=== PATIENT | male | born 1960 | race Caucasian/White ===

== ENCOUNTER 2017-07-15 10:51 | Emergency (ER) | payer SELFPAY ==
[2017-07-15 11:23] VITALS: BP 147/97
[2017-07-15] MEDS ORDERED: Lidocaine 2% PF * 5 ML VIAL INJ ONE (11:31)
--- NOTE | 2017-07-15 11:31 | UC ---
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 His last tetanus was within the last 2 years. Bleeding stopped with direct pressure. - History Of Current Complaint Chief Complaint: UCLaceration Stated Complaint: FINGER LAC Time Seen by Provider: 07/15/17 11:25 Hx Obtained From: Patient Laceration Location: Finger Mechanism Of Injury: Sharp Trauma Onset/Duration: Sudden Onset Pain Intensity: 0 - Allergies/Home Medications Allergies/Adverse Reactions: Allergies Allergy/AdvReac Type Severity Reaction Status Date / Time No Known Allergies Allergy Verified 07/15/17 11:17 PMH/Surg Hx/FS Hx/Imm Hx Previously Healthy: Yes - Surgical History Surgical History: Yes Surgery Procedure, Year, and Place: AGE 14- TONSILLECTOMY- [facility] Umbilical hernia repair 2014 - Family History Known Family History: Positive: Hypertension - Social History Occupation: Employed Full-time Lives: With Family Alcohol Use: None Alcohol Amount: 1-2 BEERS WEEKLY Substance Use Type: None Smoking Status (MU): Never Smoked Tobacco Review of Systems Constitutional: Negative Skin: Other - Laceration right middle finger Respiratory: Negative Cardiovascular: Negative Neurovascular: Negative Musculoskeletal: Negative Neurological: Negative Psychological: Negative All Other Systems Reviewed And Are Negative: Yes Physical Exam Triage Information Reviewed: Yes Appearance: Well-Appearing, No Pain Distress, Well-Nourished Vital Signs: Initial Vital Signs Temp 98.8 F 07/15/17 11:18 Pulse 74 07/15/17 11:18 Resp 16 07/15/17 11:18 BP 147/97 07/15/17 11:18 Pulse Ox 96 07/15/17 11:18 Vital Signs Reviewed: Yes Neck: Positive: Supple, Nontender, No Lymphadenopathy Respiratory: Positive: Lungs clear, Normal breath sounds, No respiratory distress, No accessory muscle use Cardiovascular: Positive: RRR, No Murmur, Pulses Normal Musculoskeletal: Positive: Strength Intact - Right middle finger, ROM Intact - Right middle finger DIP and PIP Neurological: Positive: Alert, Other: - Sensations intact right hand and all fingers Psychological: Positive: Age Appropriate Behavior Skin: Positive: Other - 1.5cm flap-like laceration overlying PIP of right third digit. No tendon involvement. Laceration Repair - Laceration Repair 1 Description: Stellate Laceration Size After Repair: Length (cm) - 1.5 Modified For Repair: No Type Injection: Local Anesthesia Used: 2.0% Lido Cleansing Completed Via Routine Prep: Yes Closure Material: Sutures - 5-0 SIX Closure Method: Single Layer Suture Of: Skin Suture Type: Nylon - 5-0 SIX Laceration Course/Dx - Course/Dx Course Of Treatment: A time out was performed, witnessed, and signed. 2mL of 2% lidocaine without epi was administered and good anesthetization was achieved. In the usual sterile fashion, SIX 5-0 nylon sutures were placed. The wound was bandaged with telfa and tubegauze. The finger was placed in a splint to allow for appropriate healing given that the laceration is directly overlying the PIP. Pt tolerated procedure well. - Differential Dx - Laceration/Wound Provider Diagnoses: 1.5cm laceration to right middle finger Discharge - Sign-Out/Discharge Documenting (check all that apply): Discharge - Discharge Plan Condition: Stable Disposition: HOME Patient Education Materials: Care For Your Stitches (DC) Forms: *Work Release Referrals: Masood Tamez MD [Primary Care Provider] - Additional Instructions: If you develop a fever, shortness of breath, chest pain, new or worsening symptoms - please call your PCP or go to the ED. Your blood pressure was high at todays visit. Please see your primary provider within 4 weeks for recheck and re-evaluation. 1) Please keep the area bandaged, clean, dry, and intact for the next 3-4 days 2) If you develop a fever, colored or thick discharge, increased pain or swelling - please call your PCP or go to the ED. 3) Please return in 10-12 days to have your SIX sutures removed. - Billing Disposition and Condition Condition: STABLE Disposition: HOME
== END 2017-07-15 12:15 | disposition home or self-care (01) ==
LOC: UCEAST 10:51
DX: S61.212A Laceration without foreign body of right middle finger without damage to nail, initial encounter (principal); W26.8XXA Contact with other sharp object(s), not elsewhere classified, initial encounter; Y92.214 College as the place of occurrence of the external cause
CPT/HCPCS: 12001; 99201; G0463

== ENCOUNTER 2017-07-25 09:30 | Emergency (ER) | payer SELFPAY ==
--- NOTE | 2017-07-25 09:31 | UC ---
Laceration HPI - HPI Summary HPI Summary: Pt presents for suture removal. I saw the pt 10 days ago and placed 6 sutures in his right middle finger. He reports no issues. - History Of Current Complaint Stated Complaint: SUTURE REMOVAL Time Seen by Provider: 07/25/17 09:31 Hx Obtained From: Patient Laceration Location: Finger Mechanism Of Injury: Sharp Trauma - Allergies/Home Medications Allergies/Adverse Reactions: Allergies Allergy/AdvReac Type Severity Reaction Status Date / Time No Known Allergies Allergy Verified 07/25/17 09:36 PMH/Surg Hx/FS Hx/Imm Hx - Additional Past Medical History Additional PMH: None Previously Healthy: Yes - Surgical History Surgical History: Yes Surgery Procedure, Year, and Place: AGE 14- TONSILLECTOMY- [facility]. Umbilical hernia repair 2014 - Family History Known Family History: Positive: Hypertension - Social History Occupation: Employed Full-time Lives: With Family Alcohol Use: None Alcohol Amount: 1-2 BEERS WEEKLY Substance Use Type: None Smoking Status (MU): Never Smoked Tobacco Review of Systems Constitutional: Negative Skin: Other - [address] right middle finger Respiratory: Negative Cardiovascular: Negative Neurovascular: Negative Musculoskeletal: Negative Neurological: Negative Psychological: Negative All Other Systems Reviewed And Are Negative: Yes Physical Exam Triage Information Reviewed: Yes Appearance: Well-Appearing, No Pain Distress, Well-Nourished Vital Signs Reviewed: Yes Neck: Positive: Supple, Nontender, No Lymphadenopathy Respiratory: Positive: Lungs clear, Normal breath sounds, No respiratory distress Cardiovascular: Positive: RRR, No Murmur, Pulses Normal Musculoskeletal: Positive: Strength Intact - Right middle finger, ROM Intact - Right middle finger, No Edema - Right middle finger Neurological: Positive: Alert, Other: - Sensations intact right middle finger Psychological: Positive: Age Appropriate Behavior Skin: Positive: Other - Well healed laceration with good approximation right middle finger. SIX sutures in place. No edema, erythema, or drainage. Laceration Course/Dx - Course/Dx Course Of Treatment: SIX sutures removed. Pt tolerated well. - Differential Dx - Laceration/Wound Provider Diagnoses: Suture removal Discharge - Sign-Out/Discharge Documenting (check all that apply): Discharge - Discharge Plan Condition: Stable Disposition: HOME Patient Education Materials: Stitches Removal (ED) Referrals: Masood Tamez MD [Primary Care Provider] - Additional Instructions: If you develop a fever, shortness of breath, chest pain, new or worsening symptoms - please call your PCP or go to the ED. Your blood pressure was high at todays visit. Please see your primary provider within 4 weeks for recheck and re-evaluation. - Billing Disposition and Condition Condition: STABLE Disposition: HOME
[2017-07-25 09:39] VITALS: BP 142/100
== END 2017-07-25 09:49 | disposition home or self-care (01) ==
LOC: UCEAST 09:30
DX: S61.212D Laceration without foreign body of right middle finger without damage to nail, subsequent encounter (principal); W45.8XXD Other foreign body or object entering through skin, subsequent encounter
CPT/HCPCS: 99211; G0463

== ENCOUNTER 2017-09-05 12:12 | Emergency (ER) | payer OTHER ==
[2017-09-05] MEDS: NS 0.9% 1000 ML* 2,000 ML IV ONE (13:39)
[2017-09-05 13:53] LABS: ABS Basophils 0.1 10^3/ul (0-0.2); ABS Eosinophils 0 10^3/ul (0-0.6); ABS Lymphocytes 2.6 10^3/ul (1.0-4.8); ABS Monocytes 0.9 10^3/ul (0-0.8); ABS Neutrophils 6.5 10^3/ul (1.5-7.7); ABS Nucleated RBC 0 10^3/ul; Eosinophil % 0.5 % (0-6); Hematocrit 52 % (42-52); Hemoglobin 18.1 g/dl (14.0-18.0); Lymphocyte % 25.4 % (25-47); Mean Corpuscular HGB Conc 35 g/dl (31-36); Mean Corpuscular Hemoglobin 29 pg (27-31); Mean Corpuscular Volume 85 fL (80-94); Mean Platelet Volume 10.2 um3 (7.4-10.4); Nucleated Red Blood Cells % 0; Platelet Count 247 10^3/ul (150-450); Red Cell Distribution Width 13 % (10.5-15); White Blood Count 10.2 10^3/ul (3.5-10.8)
[2017-09-05 14:11] LABS: INR 1.01 (0.77-1.02)
--- NOTE | 2017-09-05 14:12 | RAD ---
INDICATION: Tachycardia COMPARISON: None TECHNIQUE: An AP portable view obtained at 1331 hours is submitted. FINDINGS: Bones/Soft Tissues: There are no acute bony findings. Cardiomediastinal: The cardiomediastinal silhouette is normal. Lungs: There are no infiltrates. Pleura: There are no pleural effusions. Other: None IMPRESSION: NORMAL CHEST.
[2017-09-05 14:13] LABS: EGFR Non-African American 85.7 (>60)
[2017-09-05] MEDS ORDERED: Rivaroxaban TAB(*) 10 MG PO ONE (15:35)
[2017-09-05] MEDS ORDERED: Metoprolol Tartrate TAB* 25 MG PO ONE (15:35)
[2017-09-05] MEDS ORDERED: Aspirin 81 mg CHEW TAB* 81 MG TAB.CHEW PO ONE (15:36)
[2017-09-05 15:52] VITALS: BP 123/82
--- NOTE | 2017-09-05 16:14 | ED ---
Tim Parker Tenzin, scribed for Pedrito Feldman MD on 09/05/17 at 1335 . HPI Cardiac - HPI Summary HPI Summary: Pt is a 56 years old M presenting to ED after he was having his routine colonoscopy and there was noted an irregular heart rhythm, so he was referred to the ED. The patient denies any palpitations or being aware of when this irregular rhythm began. He denies having edema or ankle pain. - History of Current Complaint Chief Complaint: EDDysrhythmPalp Stated Complaint: IRREGULAR HEARTBEAT Time Seen by Provider: 09/05/17 13:19 Hx Obtained From: Patient Onset/Duration: Still Present Timing: Constant Current Severity: Mild Pain Intensity: 0 Pain Scale Used: 0-10 Numeric Aggravating Factor(s): Nothing Alleviating Factor(s): Nothing Associated Signs and Symptoms: Positive: Negative Related History: Obesity - Allergy/Home Medications Allergies/Adverse Reactions: Allergies Allergy/AdvReac Type Severity Reaction Status Date / Time No Known Allergies Allergy Verified 09/05/17 12:21 PMH/Surg Hx/FS Hx/Imm Hx Cardiovascular History: Reports: Hx Hypertension - BORDERLINE- NO MEDS Sensory History: Reports: Hx Contacts or Glasses - GLASEES Denies: Hx Hearing Aid Opthamlomology History: Reports: Hx Contacts or Glasses - GLASEES - Surgical History Surgery Procedure, Year, and Place: AGE 14- TONSILLECTOMY- [facility] Umbilical hernia repair 2014 Hx Anesthesia Reactions: No Infectious Disease History: No Infectious Disease History: Denies: Traveled Outside the [place] in Last 30 Days - Family History Known Family History: Positive: Hypertension - Social History Alcohol Use: None Alcohol Amount: 1-2 BEERS WEEKLY Substance Use Type: Reports: None Smoking Status (MU): Never Smoked Tobacco Review of Systems Positive: Other - Irregular heart rhythm Positive: Other - no ankle pain. Negative: Edema All Other Systems Reviewed And Are Negative: Yes Physical Exam - Summary Physical Exam Summary: General: well-appearing, no pain distress Skin: warm, color reflects adequate perfusion, dry Head: normal Eyes: EOMI, QUINTEN ENT: normal Neck: supple, nontender Respiratory: CTA, breath sounds present Cardiovascular: Tachycarida, irregularly irregular rhythm Abdomen: soft, nontender Bowel: present Musculoskeletal: normal, strength/ROM intact Neurological: sensory/motor intact, A&O x3 Psychological: affect/mood appropriate Triage Information Reviewed: Yes Vital Signs On Initial Exam: Initial Vitals Temp Pulse Resp BP Pulse Ox 97.3 F 62 18 126/88 95 09/05/17 12:17 09/05/17 12:17 09/05/17 12:17 09/05/17 12:17 09/05/17 12:17 Vital Signs Reviewed: Yes Diagnostics - Vital Signs Vital Signs Temp Pulse Resp BP Pulse Ox 09/05/17 13:07 88 13 97 09/05/17 12:17 97.3 F 62 18 126/88 95 - Laboratory Lab Results: Lab Results 09/05/17 09/05/17 09/05/17 Range/Units 13:41 13:41 13:41 WBC 10.2 (3.5-10.8) 10^3/ul RBC 6.20 H (4.0-5.4) 10^6/ul Hgb 18.1 H (14.0-18.0) g/dl Hct 52 (42-52) % MCV 85 (80-94) fL MCH 29 (27-31) pg MCHC 35 (31-36) g/dl RDW 13 (10.5-15) % Plt Count 247 (150-450) 10^3/ul MPV 10.2 (7.4-10.4) um3 Neut % (Auto) 64.3 (38-83) % Lymph % (Auto) 25.4 (25-47) % Costilla % (Auto) 8.7 H (0-7) % Eos % (Auto) 0.5 (0-6) % Baso % (Auto) 1.1 (0-2) % Absolute Neuts (auto) 6.5 (1.5-7.7) 10^3/ul Absolute Lymphs (auto) 2.6 (1.0-4.8) 10^3/ul Absolute Monos (auto) 0.9 H (0-0.8) 10^3/ul Absolute Eos (auto) 0 (0-0.6) 10^3/ul Absolute Basos (auto) 0.1 (0-0.2) 10^3/ul Absolute Nucleated RBC 0 10^3/ul Nucleated RBC % 0 INR (Anticoag Therapy) 1.01 (0.77-1.02) APTT 35.8 (26.0-36.3) seconds D-Dimer, Quantitative < 200 (Less Than 230) ng/mL Sodium 138 L (139-145) mmol/L Potassium 4.1 (3.5-5.0) mmol/L Chloride 106 (101-111) mmol/L Carbon Dioxide 24 (22-32) mmol/L Anion Gap 8 (2-11) mmol/L BUN 19 (6-24) mg/dL Creatinine 0.92 (0.67-1.17) mg/dL Est GFR ( Amer) 110.3 (>60) Est GFR (Non-Af Amer) 85.7 (>60) BUN/Creatinine Ratio 20.7 H (8-20) Glucose 88 (70-100) mg/dL Lactic Acid (0.5-2.0) mmol/L Calcium 9.4 (8.6-10.3) mg/dL Magnesium 2.2 (1.9-2.7) mg/dL Total Bilirubin 0.70 (0.2-1.0) mg/dL AST 18 (13-39) U/L ALT 20 (7-52) U/L Alkaline Phosphatase 62 (34-104) U/L Total Creatine Kinase 155 (10-223) U/L CK-MB (CK-2) 3.1 (0.6-6.3) ng/mL Troponin I 0.00 (<0.04) ng/mL C-Reactive Protein 4.02 (< 5.00) mg/L B-Natriuretic Peptide ( - 100) pg/mL Total Protein 6.7 (6.4-8.9) g/dL Albumin 4.2 (3.2-5.2) g/dL Globulin 2.5 (2-4) g/dL Albumin/Globulin Ratio 1.7 (1-3) Lipase 16 (11.0-82.0) U/L TSH 0.68 (0.34-5.60) mcIU/mL 09/05/17 09/05/17 Range/Units 13:41 13:41 WBC (3.5-10.8) 10^3/ul RBC (4.0-5.4) 10^6/ul Hgb (14.0-18.0) g/dl Hct (42-52) % MCV (80-94) fL MCH (27-31) pg MCHC (31-36) g/dl RDW (10.5-15) % Plt Count (150-450) 10^3/ul MPV (7.4-10.4) um3 Neut % (Auto) (38-83) % Lymph % (Auto) (25-47) % Costilla % (Auto) (0-7) % Eos % (Auto) (0-6) % Baso % (Auto) (0-2) % Absolute Neuts (auto) (1.5-7.7) 10^3/ul Absolute Lymphs (auto) (1.0-4.8) 10^3/ul Absolute Monos (auto) (0-0.8) 10^3/ul Absolute Eos (auto) (0-0.6) 10^3/ul Absolute Basos (auto) (0-0.2) 10^3/ul Absolute Nucleated RBC 10^3/ul Nucleated RBC % INR (Anticoag Therapy) (0.77-1.02) APTT (26.0-36.3) seconds D-Dimer, Quantitative (Less Than 230) ng/mL Sodium (139-145) mmol/L Potassium (3.5-5.0) mmol/L Chloride (101-111) mmol/L Carbon Dioxide (22-32) mmol/L Anion Gap (2-11) mmol/L BUN (6-24) mg/dL Creatinine (0.67-1.17) mg/dL Est GFR ( Amer) (>60) Est GFR (Non-Af Amer) (>60) BUN/Creatinine Ratio (8-20) Glucose (70-100) mg/dL Lactic Acid 1.1 (0.5-2.0) mmol/L Calcium (8.6-10.3) mg/dL Magnesium (1.9-2.7) mg/dL Total Bilirubin (0.2-1.0) mg/dL AST (13-39) U/L ALT (7-52) U/L Alkaline Phosphatase (34-104) U/L Total Creatine Kinase (10-223) U/L CK-MB (CK-2) (0.6-6.3) ng/mL Troponin I (<0.04) ng/mL C-Reactive Protein (< 5.00) mg/L B-Natriuretic Peptide 26 ( - 100) pg/mL Total Protein (6.4-8.9) g/dL Albumin (3.2-5.2) g/dL Globulin (2-4) g/dL Albumin/Globulin Ratio (1-3) Lipase (11.0-82.0) U/L TSH (0.34-5.60) mcIU/mL Result Diagrams: 09/05/17 13:41 09/05/17 13:41 Lab Statement: Any lab studies that have been ordered have been reviewed, and results considered in the medical decision making process. - EKG 13:26 Cardiac Rate: Tachycardia EKG Rhythm: Atrial Fibrillation - Rapid A-Fib at 114 BPM Ectopy: PVCs Disposition - Course Course Of Treatment: DISCUSSED RESULTS WITH THE PATIENT. DR ADHIKARI, CARDIOLOGY, SAW THE PATIENT IN THE ED. PATIENT OFFERED ADMISSION VERSES OUT PATIENT TREATMENT. THE PATIENT PREFERS TO GO HOME. F/U DR ADHIKARI; RETURN IF WORSE. - Diagnoses Provider Diagnoses: New onset atrial fibrillation - Physician Notifications Discussed Care Of Patient With: Andrade Adhikari Time Discussed With Above Provider: 16:10 Instructed by Provider To: Other - Dr. Adhikari, cardiology, came to see the patient. He tells me that the patient can either be admitted for workup at this time or can be cardioverted as an outpatient in four weeks. The patient prefers to be seen as an outpatient. Dr. Adhikari recommends ASA 81, Xarelto 20 mg, and metoprolol BID 20 mg. Discharge - Sign-Out/Discharge Documenting (check all that apply): Discharge/Admit/Transfer - Discharge Plan Condition: Stable Disposition: HOME Prescriptions: Aspirin EC TAB* [Ecotrin EC Low Dose 81 MG*] 81 mg PO DAILY #30 tab.ec Metoprolol Tartrate TAB* [Lopressor TAB*] 25 mg PO BID #60 tab Rivaroxaban TAB(*) [Xarelto 20 mg] 20 mg PO DAILY #30 tab Patient Education Materials: A-fib (Atrial Fibrillation) (ED) Referrals: Andrade Adhikari MD [Medical Doctor] - Additional Instructions: FOLLOW UP WITH CARDIOLOGY, DR ADHIKARI. STOP THE LISINOPRIL. START THE XARELTO, ASPIRIN AND METOPROLOL DIRECTED. RETURN TO THE EMERGENCY DEPARTMENT FOR ANY WORSENING OF YOUR CONDITION; CHEST PAIN, SHORTNESS OF BREATH, YOU FEEL ILL OR QUESTIONS OR CONCERNS. - Billing Disposition and Condition Condition: STABLE Disposition: HOME The documentation as recorded by the Tim kraft Tenzin accurately reflects the service I personally performed and the decisions made by me, Pedrito Fedlman MD.
--- NOTE | 2017-09-05 20:48 | CONS ---
CC: Carmen Cervantes NP, [place], [place]; Dr. Gray, Gastroenterology EMERGENCY ROOM CONSULTATION REPORT: DATE OF CONSULT: 09/05/17 INDICATIONS FOR CONSULTATION: Atrial fibrillation. HISTORY OF PRESENT ILLNESS: The patient is a 56-year-old gentleman with little past medical history who came to the emergency room for evaluation of atrial fibrillation. The patient had started a colonoscopy prep Tuesday night. No difficulties with that. He went to his procedure appointment and was found to be in atrial fibrillation with rapid ventricular response. He was transferred over to the emergency room. In the emergency room, the patient has no symptoms. He denies any chest pain, shortness of breath. No palpitations. No lightheadedness, dizziness, or syncope. The patient states that 3 years ago, he has having occasional episodes of palpitations, but they since passed and has never had any other problems. Denies any other cardiac issues. He does have a history of hypertension. No history of myocardial infarction. No history of other issues. PAST MEDICAL HISTORY: Significant for hypertension. MEDICATIONS: Lisinopril 10 mg a day. ALLERGIES: No known drug allergies. FAMILY HISTORY: No family history of early coronary artery disease or cardiac arrhythmia. REVIEW OF SYSTEMS: Negative for fevers or chills. Negative for changes in bowel or bladder habits. Negative for change in weight. Other 10-point review is unremarkable. PHYSICAL EXAM: Vital Signs: Height is 5 feet 10 inches, weight 245 pounds. Heart rate 104, blood pressure 123/82, respiratory rate 15, oxygen saturation 90 % on room air, temperature 97.3. HEENT: Sclerae anicteric. Oropharynx is pink without erythema. Neck: Carotids are 2+ without bruits. JVD is normal. Thyroid is normal. Cardiac: S1 and S2 without any murmurs, rubs, or gallops. Lungs: Clear to auscultation bilaterally. There is no dullness to percussion. Abdomen: Soft, nontender, and nondistended with normoactive bowel sounds. Extremities: Show no edema. He has 2+ pulses throughout. Neurologic: The patient is awake, alert, and oriented. He moves all 4 extremities equally. DIAGNOSTIC STUDIES/LAB DATA: Chemistries within normal limits. Potassium 4.1, BUN 19, creatinine 0.92. AST and ALT are normal. TSH is normal. BNP is 26. CBC within normal limits. Hemoglobin 18, hematocrit 52, platelet count 245, 000. EKG shows atrial fibrillation, occasional PVCs. IMPRESSION: This is a 56-year-old gentleman who was scheduled for routine colonoscopy today, was found to be in atrial fibrillation. The patient has no symptoms from his atrial fibrillation. His heart rate is around 114. I had a long discussion with the patient and his son regarding treatment of his atrial fibrillation. I talked to him about anticoagulation and problems in regard to cardioversion, talked to him about echocardiogram. For now, the decision is reached that the patient will start anticoagulation and we will start Xarelto 20 mg a day. He will start on low dose beta-blockers , Lopressor 25 mg b.i.d., aspirin 81 mg a day. I will see the patient in followup in 3 weeks. If he is still in atrial fibrillation, I will consider scheduling him for a cardioversion. The patient will get an outpatient echocardiogram. I did offer the patient a transesophageal echocardiogram and cardioversion tomorrow, which he declined. I think that is reasonable given the fact that he has no symptoms. [id number]/[facility] #: [id number] [facility]
== END 2017-09-05 16:24 | disposition home or self-care (01) ==
LOC: ED 12:12
DX: I48.91 Unspecified atrial fibrillation (principal); E66.9 Obesity, unspecified
CPT/HCPCS: 36415; 71045; 80053; 82550; 82553; 83605; 83690; 83735; 83880; 84443; 84484; 85025; 85379; 85610; 85730; 86140; 93005; 99283; A9270-GY